=== PATIENT | female | born 1985 | race Two or more races ===

== ENCOUNTER 2017-01-02 08:54 | Emergency (ER) | payer OTHER ==
--- NOTE | 2017-01-02 09:44 | ER Document Report ---
ED Head/Face/Scalp Injury - General Chief Complaint: Facial Injury Stated Complaint: FACE AND NOSE INJURY Mode of Arrival: Ambulatory Information source: Patient TRAVEL OUTSIDE OF THE [place] IN LAST 30 DAYS: No - HPI Patient complains to provider of: Injury Injury to: Cheek, Nose Occurred: Other - 2 DAYS AGO Where: Work - [employer] Timing: Still present Context: Other - CHILD'S HEAD STRUCK PT. IN FACE Loss consciousness: No loss of consciousness - Related Data Allergies/Adverse Reactions: No Known Allergies Allergy (Verified 01/02/17 09:00) Past Medical History - General Information source: Patient - Social History Smoking Status: Never Smoker Cigarette use (# per day): No Chew tobacco use (# tins/day): No Frequency of alcohol use: None Drug Abuse: None Family History: Reviewed & Not Pertinent Patient has suicidal ideation: No Patient has homicidal ideation: No Renal/ Medical History: Denies: Hx Peritoneal Dialysis Past Surgical History: Reports: Hx Section - x1 - Immunizations Hx Diphtheria, Pertussis, Tetanus Vaccination: Yes Review of Systems - Review of Systems Constitutional: No symptoms reported EENT: See HPI, Blurred vision, Nose pain, Nose discharge, Sinus pressure Cardiovascular: No symptoms reported Respiratory: No symptoms reported Gastrointestinal: No symptoms reported Genitourinary: No symptoms reported Female Genitourinary: No symptoms reported Musculoskeletal: No symptoms reported Neurological/Psychological: Confusion Physical Exam - Vital signs Vitals: Temp Pulse Resp BP Pulse Ox 97.6 F 59 L 14 114/52 L 100 01/02/17 09:02 01/02/17 09:02 01/02/17 09:02 01/02/17 09:02 01/02/17 09:02 Interpretation: Normal - General General appearance: Appears well, Alert In distress: None - HEENT Head: Normocephalic Eyes: Normal Conjunctiva: Normal Ears: Normal External canal: Normal Tympanic membrane: Normal Nasal: Other - TENDER OVER NASAL BONE Mouth/Lips: Normal Mucous membranes: Normal Pharynx: Normal Neck: Normal - Respiratory Respiratory status: No respiratory distress - Cardiovascular Rhythm: Regular - Extremities General upper extremity: Normal inspection General lower extremity: Normal inspection - Neurological Neuro grossly intact: Yes Cognition: Normal Orientation: AAOx4 - Psychological Associated symptoms: Normal affect, Normal mood - Skin Skin Temperature: Warm Skin Moisture: Dry Skin Color: Normal Skin Turgor: Elastic Course - Vital Signs Vital signs: Temp Pulse Resp BP Pulse Ox 97.6 F 59 L 14 114/52 L 100 01/02/17 09:02 01/02/17 09:02 01/02/17 09:02 01/02/17 09:02 01/02/17 09:02 Discharge - Discharge Clinical Impression: Facial contusion Qualifiers: Encounter type: initial encounter Qualified Code(s): S00.83XA - Contusion of other part of head, initial encounter Concussion Qualifiers: Encounter type: initial encounter Loss of consciousness presence/duration: without LOC Qualified Code(s): S06.0X0A - Concussion without loss of consciousness, initial encounter Condition: Stable Disposition: HOME, SELF-CARE Instructions: Concussion ([facility]), Contusion ([facility]) Additional Instructions: MINIMIZE PHYSICAL AND MENTAL ACTIVITY NEXT 48 HOURS. YOU YURY TAKE TYLENOL OR IBUPROFEN IF NEEDED FOR PAIN. FOLLOW UP IF NOT IMPROVED IN 48 HRS, OR SOONER IF WORSE ANY TIME. Referrals: JENNIFER ADLER DO [Primary Care Provider] - Follow up as needed
[2017-01-02 10:25] VITALS: BP 116/66
== END 2017-01-02 10:27 | disposition home or self-care (01) ==
LOC: ER 08:54
DX: S06.0X0A Concussion without loss of consciousness, initial encounter (principal); S09.93XA Unspecified injury of face, initial encounter; W50.0XXA Accidental hit or strike by another person, initial encounter; Y92.210 Daycare center as the place of occurrence of the external cause; Y99.0 Civilian activity done for income or pay
CPT/HCPCS: 99283

== ENCOUNTER → 2020-01-02 | Outpatient (CLI) | payer OTHER | LOC: OD 11:18 | PROVIDERS: ATTEND Nurse Practitioner Family | DX: N39.0 Urinary tract infection, site not specified (principal); R30.0 Dysuria | CPT/HCPCS: 87086; 87088; 87186 ==